=== PATIENT | male | born 1940 | race Caucasian/White ===

== ENCOUNTER 2017-02-17 05:55 | Emergency (ER) | payer OTHER ==
[~2017-02-17] VITALS: Ht 175.3 cm; Wt 74.8 kg
[2017-02-17 06:09] VITALS: BP 153/91
[2017-02-17] MEDS ORDERED: PRAVACHOL40 MG PO (06:16)
[2017-02-17] MEDS ORDERED: IBUPROFEN 800800 M1 PO (06:16)
[2017-02-17] MEDS ORDERED: NAPROXEN375 M1 PO (06:31)
[2017-02-17] MEDS ORDERED: MEDROLDOSEPACK PO (06:31)
[2017-02-17] MEDS ORDERED: NORCO 5-325 TA1 EACH PO (06:31)
[2017-02-17] MEDS ORDERED: SENOKOT-S1 TA1 PO (06:31)
== END 2017-02-17 07:01 | disposition home or self-care (01) ==
LOC: ER 05:55
DX: M54.16 Radiculopathy, lumbar region (principal); E78.5 Hyperlipidemia, unspecified; F10.99 Alcohol use, unspecified with unspecified alcohol-induced disorder